=== PATIENT | female | born 2005 | race Caucasian/White ===

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

== ENCOUNTER 2024-03-24 11:50 | Outpatient (AMB) | payer OTHER, SELFPAY ==
--- NOTE | 2024-03-24 11:51 | MHC.PC.OV ---
Vital Signs 03/24/24 11:54 03/24/24 12:25 Height 5 ft 1 in Weight 304 lb BMI 57.4 BP 112/66 Blood Pressure Location Rt brachial Position Sitting Respiration 12 Pulse 112 H 90 Pulse Source Pulse Oximeter Auscultation Pulse Oximetry (%) 98 Oxygen Delivery Method Room Air Intake Visit Reasons: HERE TODAY FOR CPE Intake Note: annual physical [facility] Path Therapist Required: No Allergies pollen extracts Allergy (Mild, Verified 03/24/24 12:18) sneezing, watery eyes cats Allergy (Mild, Uncoded 08/01/23 12:27) itching, sneezing, watery eyes Medication List - Last Reconciled 03/24/24 by Yesenia Gardner, HARDWARE INSTALLATION COORDINATOR- albuterol sulfate 90 mcg/actuation 2 puffs inhalation Q4-6H PRN 30 days omeprazole 40 mg PO DAILY Tobacco use date assessed: 08/01/23 Dental Screening Dental Screen Date: 08/01/23 HPI HPI Comments History of Present Illness Details 18-year-old with GERD, PTSD, BRIGIDO, Obesity, Asthma, ganglion cyst R wrist (volar surface) Social: 1 dtr, w [facility] Maintenance Tdap declined Flu declined History of Present Illness The patient is a 18-year-old female presenting with a request for a complete physical examination; currently 38 weeks . The patient, healthy during this current , was initially hesitant about a repeat section but was informed the baby is small enough for a natural delivery. She is experiencing contractions, which have intensified compared to the previous , leading to an induction scheduled for the following week at 39 weeks gestation. Asthma controlled w PRN RAFAEL. She has been managing her GERD with prescribed medication but requires a refill. Her anxiety medication, escitalopram, has not been taken recently. Feels mood stable w/o meds or counseling. She inquired about the safety of weight loss medication, Ozempic. 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 She reported headaches exacerbated by bending over, which improved after increasing fluid intake. Normal bowel and bladder habits. Social History - Family status: with a second child; has one older child. - Substance use: Denies smoking. - Activity level: Reports fatigue related to advanced . - Support system: Resides with [facility]?; mother present for support. - Weight management: Inquired about weight loss medication during . General: Well developed, well nourished, in no acute distress. Appears stated age. Head: Normocephalic, atraumatic. Eyes: Pupils are equal, round and reactive to light and accommodation. Conjunctivae are clear. Vision grossly normal. Ears: TMs clear AU, EACS WNL Nose: Patent, without discharge. Mouth: There are no ulcers or lesions noted. No inflammation, no post nasal drip, no plaques nor exudates. Neck: Supple, no adenopathy or thyromegaly. Lungs: Clear to auscultation bilaterally. No rales, rhonchi or wheeze noted. Good air flow in all doss. Heart: Regular rate and rhythm. No murmurs, click, rubs or gallops are noted. Abdomen: Gravid abd. Musculoskeletal: Joints are nontender, without redness, or effusions. Range of motion is observed to be normal. Trace edema BLE Pulses: Peripheral pulses are equal and palpable bilaterally. Extremities: No clubbing, cyanosis is noted. Neurologic: Gait and station normal. Cranial Nerves 2-12 intact. Motor strength grossly symmetrical and intact. No sensory loss. Balance normal. Skin: No rashes, ulcers, or lesions noted. Turgor is good. Skin color is good. Hair and nails are without abnormalities. Psych: Normal eye contact, affect and mood appropriate, and normal interactions. Patient is alert and appropriate to context. Plan - Refill prescription for GERD medication. - Prescribe an inhaler for asthma management. 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 - Recommend increasing fluid intake to alleviate headache symptoms. - Discuss and manage anxiety disorder . - Lifestyle mods for wt loss; no ozempic. Patient was informed and verbally consented to the use of an ambient scribe for clinic note documentation during this visit. 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 1. Little interest or pleasure in doing things: not at all 2. Feeling down, depressed, or hopeless: not at all 3. Trouble falling or staying asleep, or sleeping too much: not at all 4. Feeling tired or having little energy: not at all 5. Poor appetite or overeating: not at all 6. Feeling bad about yourself - or that you are a failure or have let yourself or your family down: not at all 7. Trouble concentrating on things, such as reading the newspaper or watching television: not at all 8. Moving or speaking so slowly that other people could have noticed. Or the opposite - being so fidgety or restless that you have been moving around a lot more than usual: not at all 9. Thoughts that you would be better off or of hurting yourself in some way: not at all Total score: 0 Depression Screening Interpretation: Negative Depression Screening Done: Yes 02676 - PHQ-9 Billing: Yes Source: Developed by Drs. Vivek Vásquez, Ciara Walker, Sterling Price and colleagues, with an educational alma from [employer]. Thrive Questionnaire Date Thrive assessed: 03/24/24 I am a: Patient What is your living situation today?: I choose not to answer this question Within the past 12 months, did the food you bought not last and you didn't have the money to get more?: I choose not to answer this question Within the past 12 months, did you worry whether your food would run out before you got money to buy more?: I choose not to answer this question Do you have trouble paying for medicines?: I choose not to answer this question Do you have trouble getting transportation to medical appointments?: I choose not to answer this question Do you have trouble paying your heating and electricity bill?: I choose not to answer this question Do you have trouble taking care of your child, family member or friend?: I choose not to answer this question Do you have trouble with day-to-day activities such as bathing, preparing meals, shopping, managing finances, etc.?: I choose not to answer this question Are you currently unemployed and looking for a job?: I choose not to answer this question Are you interested in more education?: I choose not to answer this question Please select the resources that you would like help with: None Currently or been in a relationship where the following occur: I choose not to answer THRIVE Score: 0 AUDIT C Alcohol Use Questionnaire (AUDIT-C) 1. How often do you have a drink containing alcohol?: Never 3. How often do you have six or more drinks on one occasion?: Never Total Score: 0 Score Reviewed/Action Taken: Yes BRIGIDO-7 AMB Questionnaire BRIGIDO-7 Date BRIGIDO - 7 assessed: 03/24/24 Feeling nervous, anxious, or on edge: 0 = Not at all Not being able to stop or control worryin = Not at all Worrying too much about different things: 0 = Not at all Trouble relaxin = Not at all Being so restless that it is hard to sit still: 0 = Not at all Becoming easily annoyed or irritable: 0 = Not at all Feeling afraid as if something awful might happen: 0 = Not at all Total BRIGIDO-7 score (0-4 normal; 5-9 mild; 10-14 moderate; 15-21 severe): 0 Source: Developed by Drs. Vivek Vásquez, Ciara Walker, Sterling Price and colleagues, with an educational alma from [employer]. BRIGIDO-7 Assessment Billing BRIGIDO-7 Assessment Tool: BRIGIDO-7 Assessment 13020 ACT Questionnaire In the past 4 weeks, how much of the time did your asthma keep you from getting as much done at work, school or at home?: None of the time During the past 4 weeks, how often have you had shortness of breath?: Not at all During the past 4 weeks, how often did your asthma symptoms wake you up at night or earlier than usual in the morning?: Not at all During the past 4 weeks, how often have you had to use your rescue inhaler or nebulizer medication?: Not at all How would you rate your asthma control during the past 4 weeks?: Completely controlled ACT Interpretation: Negative Score: 25 Physical exam (Primary Care) Vital Signs: Last Vital Signs Pulse 112 H 03/24/24 11:54 Resp 12 03/24/24 11:54 BP 112/66 03/24/24 11:54 Pulse Ox 98 03/24/24 11:54 Oxygen Delivery Method Room Air 03/24/24 11:54 BMI result Body Mass Index 57.4 BMI Assessment/Plan discussion: High BMI High, discussed plan: lifestyle Tobacco/Smoking Status: Tobacco use Status Tobacco use date assessed 08/01/23 03/24/24 11:56 Patient Tobacco Use Status Never used Tobacco 03/24/24 11:56 e-Cigarette/Vaping Use Never Used 03/24/24 11:56 Depression Screening Interpretation: Negative Thrive Assessment: Date of Thrive Assessment Date Thrive assessed 03/24/24 03/24/24 11:56 Currently or been in a relationship where the following occur: I choose not to answer Coding Level of Care Code Est Pt Prev Care 18-39y(11380) Diagnoses Encounter for general adult medical examination without abnormal findings Z00.00 38 weeks gestation of Z3A.38 Weeks of gestation: 38 weeks Influenza vaccination declined Z28.21 Tetanus, diphtheria, and acellular pertussis (Tdap) vaccination declined Z28.21 Morbidly obese E66.01 Mild intermittent asthma without complication J45.20 Asthma complication type: uncomplicated BRIGIDO (generalized anxiety disorder) F41.1 PTSD (post-traumatic stress disorder) F43.10 Gastroesophageal reflux disease without esophagitis K21.9 Esophagitis presence: without esophagitis Additional Codes BRIGIDO-7 Assessment Billing - BRIGIDO-7 Assessment Tool: BRIGIDO-7 Assessment 46842 ([id number]) PHQ-9 - 45900 - PHQ-9 Billing: Yes ([id number]) Asthma Control Questionnaire - ACT Interpretation: Negative ([id number]) Assessment & Plan Assessment & Plan (1) Encounter for general adult medical examination without abnormal findings: Code(s): Z00.00 - Encounter for general adult medical examination without abnormal findings (2) : Comment: will be induced this week at [facility] Code(s): Z34.90 - Encounter for supervision of normal , unspecified, unspecified trimester Category: Medical Qualifiers: Weeks of gestation: 38 weeks Qualified Code(s): Z3A.38 - 38 weeks gestation of (3) Influenza vaccination declined: Code(s): Z28.21 - Immunization not carried out because of patient refusal (4) Tetanus, diphtheria, and acellular pertussis (Tdap) vaccination declined: Code(s): Z28.21 - Immunization not carried out because of patient refusal (5) Morbidly obese: Comment: BMI > 53 lifestyle mods encouraged Code(s): E66.01 - Morbid (severe) obesity due to excess calories Category: Medical (6) Mild intermittent asthma: Comment: seasonal and environmental triggers Plan :cont Albuterol PRN Code(s): J45.20 - Mild intermittent asthma, uncomplicated Category: Medical Qualifiers: Asthma complication type: uncomplicated Qualified Code(s): J45.20 - Mild intermittent asthma, uncomplicated (7) BRIGIDO (generalized anxiety disorder): Comment: see PTSD Code(s): F41.1 - Generalized anxiety disorder Category: Medical (8) PTSD (post-traumatic stress disorder): Comment: counseling in the past, not effective; new referral placed - did not go was on lexapro, stopped does not feels needs meds @ this time Code(s): F43.10 - Post-traumatic stress disorder, unspecified Category: Medical (9) Esophageal reflux: Comment: was on omeprazole 40mg in the past with + effect, stopped only because she ran out of refills Plan: cont omeprazole 40 Qd. Cont diet mods. Code(s): K21.9 - Gastro-esophageal reflux disease without esophagitis Category: Medical Qualifiers: Esophagitis presence: without esophagitis Qualified Code(s): K21.9 - Gastro-esophageal reflux disease without esophagitis Plan . Medications: Refilled albuterol sulfate 90 mcg/actuation 2 puffs inhalation Q4-6H 30 days PRN 6.7 grams 0RF shortness of breath or wheezing omeprazole 40 mg PO DAILY 90 caps 0RF Patient Instructions: Health screenings for women You should visit your health care provider from time to time, even if you are healthy. The purpose of these visits is to: Screen for medical issues Assess your risk for future medical problems Encourage a healthy lifestyle Update vaccinations and other preventive care services Help you get to know your provider in case of an illness Information Even if you feel fine, you should still see your provider for regular checkups. These visits can help you avoid problems in the future. For example, the only way to find out if you have high blood pressure is to have it checked regularly. High blood sugar and high cholesterol levels also may not have any symptoms in the early stages. A simple blood test can check for these conditions. There are specific times when you should see your provider or receive specific health screenings. The [place] Preventive Services Task Force publishes a list of recommended screenings. Below are screening guidelines for women ages 18 to 39. BLOOD PRESSURE SCREENING Your blood pressure should be checked at least once every 3 to 5 years if: Your blood pressure is in the normal range (top number less than 120 mm Hg and bottom number less than 80 mm Hg) You don't have risk factors for high blood pressure Ask your provider if you need your blood pressure checked more often if: The top number is 120 to 129 mm Hg or the bottom number is 70 to 79 mm Hg You have diabetes, heart disease, kidney problems, are overweight, or have certain other health conditions You have a first-degree relative with high blood pressure You are Black You had high blood pressure during a If the top number is 130 mm Hg or greater or the bottom number is 80 mm Hg or greater, this is considered stage 1 hypertension. Schedule an appointment with your provider to learn how you can reduce your blood pressure. Watch for blood pressure screenings in your area. Ask your provider if you can stop in to have your blood pressure checked. BREAST CANCER SCREENING Experts do not agree about the benefits of breast self-exams in finding breast cancer or saving lives. Talk to your provider about what is best for you. A screening mammogram is not recommended for most women under age 40. Your provider may discuss and recommend mammograms, MRI scans, or ultrasounds if you have an increased risk for breast cancer, such as: A mother or sister who had breast cancer at a young age (most often starting screening earlier than the age the close relative was diagnosed) You carry a high-risk genetic marker CERVICAL CANCER SCREENING Cervical cancer screening should start at age 21 years unless your provider advises otherwise. After the first test: Women ages 21 through 29 should have a Pap test every 3 years. Exoprts do not agree on whether HPV testing is recommended for this age group. Women ages 30 through 65 should be screened with either a Pap test every 3 years or the HPV test every 5 years or both tests every 5 years (called cotesting ). Women who have been treated for precancer (cervical dysplasia) should continue to have Pap tests for 20 years after treatment or until age 65, whichever is longer. If you have had your uterus and cervix removed (total hysterectomy), and you have not been diagnosed with cervical cancer or precancer (high grade cervical neoplasia), you do not need cervical cancer screening. CHOLESTEROL SCREENING Cholesterol screening should begin at: Age 45 for women with no known risk factors for coronary heart disease Age 20 for women with known risk factors for coronary heart disease Repeat cholesterol screening should take place: Every 5 years for women with normal cholesterol levels More often if changes occur in lifestyle (including weight gain and diet) More often if you have diabetes, heart disease, kidney problems, or certain other conditions DIABETES SCREENING You should be screened for diabetes starting at age 35 and then repeated every 3 years if you have no risk factors for diabetes. Screening may need to start earlier and be repeated more often if you have other risk factors for diabetes, such as: You have a first degree relative with diabetes. You are overweight or have obesity. You have high blood pressure, prediabetes, or a history of heart disease. Screening for diabetes should be done if you are planning to become and you are overweight and have other risk factors such as high blood pressure. DENTAL EXAM Go to the dentist once or twice every year for an exam and cleaning. Your dentist will evaluate if you need more frequent visits. EYE EXAM Have an eye exam every 5 to 10 years before age 40. If you have vision problems, have an eye exam every 2 years or more often if recommended by your provider. You should have an eye exam that includes an examination of your retina (back of your eye) at least every year if you have diabetes. IMMUNIZATIONS Commonly needed vaccines include: Flu shot: get one every year. COVID-19 vaccine: ask your provider what is best for you. Tetanus-diphtheria and acellular pertussis (Tdap) vaccine: have one at or after age 19 as one of your tetanus-diphtheria vaccines if you did not receive it as an adolescent. Tetanus-diphtheria: have a booster (or Tdap) every 10 years. Varicella vaccine: receive 2 doses if you never had chickenpox or the varicella vaccine. Hepatitis B vaccine: receive 2, 3, or 4 doses, depending on your exact circumstances. Measles, mumps, and rubella (MMR) vaccine: receive 1 to 2 doses if you are not already immune to MMR. Your provider can tell you if you are immune. Ask your provider about the human papillomavirus (HPV) vaccine if: You have not received the HPV vaccine in the past You have not completed the full vaccine series (you should catch up on this shot) Ask your provider if you should receive other immunizations if you have certain health problems that increase your risk for some diseases such as pneumonia. INFECTIOUS DISEASE SCREENING Women who are sexually active should be screened for chlamydia and gonorrhea up until age 25. Women 25 years and older should be screened for chlamydia and gonorrhea if at high risk. Screening for hepatitis C: All adults ages 18 to 79 should get a one-time test for hepatitis C. people should be screened at every . Screening for human immunodeficiency virus (HIV): All people ages 15 to 65 should get a one-time test for HIV. Depending on your lifestyle and medical history, you may also need to be screened for infections such as syphilis and HIV, as well as other infections. PHYSICAL EXAM All adults should visit their provider from time to time, even if they are healthy. The purpose of these visits is to: Screen for disease Assess your risk of future medical problems Encourage a healthy lifestyle Update your vaccinations and other preventive care services Maintain a relationship with a provider in case of an illness Your height, weight, and BMI should be checked at every exam. During your exam, your provider may ask you about: Depression and anxiety Diet and exercise Alcohol and tobacco use Safety issues, such as using seat belts, smoke detectors, and intimate partner violence Your medicines and risk for interactions SKIN SELF-EXAM Your provider may check your skin for signs of skin cancer, especially if you're at high risk, such as if you: Have had skin cancer before Have close relatives with skin cancer Have a weakened immune system OTHER SCREENING Talk with your provider about colon cancer screening if you have a strong family history of colon cancer or polyps, or if you have had inflammatory bowel disease or polyps yourself. Routine bone density screening of women under 40 is not recommended.
[2024-03-24 11:54] VITALS: BP 112/66; PULSE 112; RESP 12; O2SAT 98; BMI 57.4
[2024-03-24 12:25] VITALS: PULSE 90
== END 2024-03-24 14:21 | disposition home or self-care (01) ==
PROVIDERS: PCP Nurse Practitioner Family; Visit Provider Nurse Practitioner Family
DX: Z00.00 Encounter for general adult medical examination without abnormal findings (principal); Z3A.38 38 weeks gestation of pregnancy; Z28.21 Immunization not carried out because of patient refusal; E66.01 Morbid (severe) obesity due to excess calories; J45.20 Mild intermittent asthma, uncomplicated; F41.1 Generalized anxiety disorder; F43.10 Post-traumatic stress disorder, unspecified; K21.9 Gastro-esophageal reflux disease without esophagitis; Z68.54 Body mass index [BMI] pediatric, 95th percentile for age to less than 120% of the 95th percentile for age

== ENCOUNTER → 2024-03-24 11:50 | Outpatient (BNVA) | payer OTHER, SELFPAY | PROVIDERS: PCP Nurse Practitioner Family; Visit Provider Nurse Practitioner Family | DX: Z00.00 Encounter for general adult medical examination without abnormal findings (principal); E66.01 Morbid (severe) obesity due to excess calories; J45.20 Mild intermittent asthma, uncomplicated; F41.1 Generalized anxiety disorder; F43.10 Post-traumatic stress disorder, unspecified; K21.9 Gastro-esophageal reflux disease without esophagitis | CPT/HCPCS: 96127; 96160; 99395 ==